=== PATIENT | female | born 1970 | race Caucasian/White ===

== ENCOUNTER 2016-12-18 12:22 | Emergency (ER) | payer BC ==
[~2016-12-18] VITALS: Ht 160 cm; Wt 73.8 kg
[~2016-12-18 12:22] MED LIST: MULT-506 PO; PRED20TA PO
[2016-12-18 12:24] VITALS: TEMP 36.8; Ht 160 cm; Wt 73.8 kg
[2016-12-18] MEDS ORDERED: CHOL1TAB46 PO (13:28)
[2016-12-18] MEDS ORDERED: GLAT1INJ INJ (13:28)
[2016-12-18] MEDS ORDERED: CEFTRIAXONE SOD INJ 1 GM ADDVIAL IV STA (13:32)
[2016-12-18] MEDS ORDERED: ONDANSETRON INJ 2 MG/ML 2 ML VIAL IV STA (13:32)
[2016-12-18] MEDS ORDERED: SODIUM CHLORIDE 0.9% 1000ML 1,000 ML IV STA (13:32)
[2016-12-18 13:33] LABS: MANUAL MICROSCOPIC REQUIRED? YES; REVIEW REQ? NO; URINE APPEARANCE SLIGHTLY CLOUDY (CLEAR); URINE COLOR ORANGE
[2016-12-18 13:34] LABS: SULFASALICYLIC ACID NEG (NEG)
[2016-12-18 13:36] LABS: URINE RBC 0-4 /hpf (0-4)
[2016-12-18 13:37] LABS: URINE BACTERIA 1+ (NEG); ZZUR CULT IF INDIC CLEAN CATCH YES
[2016-12-18 14:05] LABS: BASO % 0.1 %; BASO ABS # 0.01 K/uL (0-0.2); COMPLETE YES; EOS % 0.3 %; HEMATOCRIT 44.1 % (37-47); IG% 0.2 %; LYMPH % 5.3 %; LYMPH ABS # 0.48 K/uL (1.2-3.4); MEAN CELL VOLUME 90.4 fL (80-100); MEAN CORPUSCULAR HEMOGLOBIN 30.1 pg (25-34); MEAN CORPUSCULAR HGB CONC 33.3 g/dl (32-36); MEAN PLATELET VOLUME 9.8 fL (7.4-10.4); MONO % 5.6 %; NEUT % 88.5 %; PLATELET COUNT 251 K/uL (130-400); RED BLOOD COUNT 4.88 M/uL (4.2-5.4); WHITE BLOOD COUNT 8.99 K/uL (4.8-10.8)
[2016-12-18 14:28] LABS: BLOOD UREA NITROGEN 16 mg/dl (7-18); CALCIUM 9.2 mg/dl (8.5-10.1); CARBON DIOXIDE 24 mmol/L (21-32); CHLORIDE 104 mmol/L (98-107); CREATININE 0.82 mg/dl (0.60-1.20); GLUCOSE 100 mg/dl (70-99); SODIUM 139 mmol/L (136-145)
[2016-12-18] MEDS ORDERED: NITR-5 PO (15:04)
[2016-12-18] MEDS ORDERED: ONDA4TAB10 SL (15:05)
--- NOTE | 2016-12-18 15:08 | EMERGENCY ROOM VISIT NOTE ---
History Report prepared by Aureliano: Jodi Honeycutt Under the Supervision of: Dr. Isaac Cross D.O. First contact with patient: 13:28 Chief Complaint: URINARY SYMPTOMS Stated Complaint: UTI, VOMITING History of Present Illness The patient is a 46 year old female who presents to the Emergency Room with complaints of persistent urinary symptoms that began yesterday. She currently rates her discomfort as a 5/10 in severity. The patient states that she started noticing burning with urination and states that she took Azo this morning that helped with her urinary symptoms. She states that today she has become nauseous and additionally vomited. The patient states that she has had urinary frequency and notices a pressure with urination. She denies any fever, back pain, or flank pain. The patient notes a history of multiple sclerosis. Source of History: patient Onset: yesterday Position: other (global) Symptom Intensity: 5/10 Quality: other (urinary symptoms) Timing: other (persistent) Associated Symptoms: + nausea, + urinary symptoms (urinary frequency, pressure, burning with urination), + vomiting, No back pain, No fevers Review of Systems See HPI for pertinent positives & negatives. A total of 10 systems reviewed and were otherwise negative. Past Medical & Surgical Surgical Problems: (1) H/O: hysterectomy Family History Cancer Social History Smoking Status: Never Smoker Alcohol Use: none Drug Use: none Marital Status: Housing Status: lives with family Occupation Status: employed Current/Historical Medications Scheduled Cholecalciferol (Vitamin D3), 5,000 UNITS PO DAILY Glatiramer Acetate (Copaxone), 40 MG INJ 3XWK Nitrofurantoin Monohyd Macrocr (Macrobid), 100 MG PO BID Ondasetron Odt (Zofran Odt), 4 MG SL Q6H Allergies Coded Allergies: Hydrocodone (Verified Allergy, Mild, hives, 08/13/16) Physical Exam Vital Signs Date Time Temp Pulse Resp B/P Pulse Ox O2 Delivery O2 Flow Rate FiO2 12/18/16 13:57 105 18 124/56 93 Room Air 12/18/16 12:24 36.8 109 17 113/81 96 Room Air Physical Exam CONSTITUTIONAL/VITAL SIGNS: Reviewed / noted above. GENERAL: Non-toxic in appearance. INTEGUMENTARY: Warm, dry, and [place]. HEAD: Normocephalic. EYES: without scleral icterus or trauma. ENT/OROPHARYNX: clear and moist. LYMPHADENOPATHY/NECK: Is supple without lymphadenopathy or meningismus. RESPIRATORY: Lungs clear and equal. CARDIOVASCULAR: Regular rate and rhythm. GI/ABDOMEN: Soft and nontender. No organomegaly or pulsatile mass. No rebound or guarding. Normal bowel sounds. EXTREMITIES: Warm and well perfused. BACK: No CVA tenderness. NEUROLOGICAL: Intact without focal deficits. PSYCHIATRIC: normal affect. MUSCULOSKELETAL: Normally developed with good muscle tone. Medical Decision & Procedures Laboratory Results 12/18/16 13:57 Red Blood Count 4.88, Mean Corpuscular Volume 90.4, Mean Corpuscular Hemoglobin 30.1, Mean Corpuscular Hemoglobin Concent 33.3, Mean Platelet Volume 9.8, Neutrophils (%) (Auto) 88.5, Lymphocytes (%) (Auto) 5.3, Monocytes (%) (Auto) 5.6, Eosinophils (%) (Auto) 0.3, Basophils (%) (Auto) 0.1, Neutrophils # (Auto) 7.95, Lymphocytes # (Auto) 0.48, Monocytes # (Auto) 0.50, Eosinophils # (Auto) 0.03, Basophils # (Auto) 0.01 12/18/16 13:57 Test 12/18/16 12:39 12/18/16 13:57 Urine Color ORANGE Urine Appearance SLIGHTLY CLOUDY (CLEAR) Urine pH (4.5-7.5) Urine Specific [place] 1.020 (1.000-1.030) Urine Protein NEG (NEG) Urine Glucose (UA) (NEG) Urine Ketones (NEG) Urine Occult Blood (NEG) Urine Nitrite (NEG) Urine Bilirubin (NEG) Urine Urobilinogen (NEG) Urine Leukocyte Esterase (NEG) Urine RBC 0-4 /hpf (0-4) Urine WBC 5-10 /hpf (0-5) Urine Epithelial Cells >30 /lpf (0-5) Urine Calcium Oxalate Crystals PRESENT (NONE PRSENT) Urine Bacteria 1+ (NEG) White Blood Count 8.99 K/uL (4.8-10.8) Red Blood Count 4.88 M/uL (4.2-5.4) Hemoglobin 14.7 g/dL (12.0-16.0) Hematocrit 44.1 % (37-47) Mean Corpuscular Volume 90.4 fL (80-100) Mean Corpuscular Hemoglobin 30.1 pg (25-34) Mean Corpuscular Hemoglobin Concent 33.3 g/dl (32-36) Platelet Count 251 K/uL (130-400) Mean Platelet Volume 9.8 fL (7.4-10.4) Neutrophils (%) (Auto) 88.5 % Lymphocytes (%) (Auto) 5.3 % Monocytes (%) (Auto) 5.6 % Eosinophils (%) (Auto) 0.3 % Basophils (%) (Auto) 0.1 % Neutrophils # (Auto) 7.95 K/uL (1.4-6.5) Lymphocytes # (Auto) 0.48 K/uL (1.2-3.4) Monocytes # (Auto) 0.50 K/uL (0.11-0.59) Eosinophils # (Auto) 0.03 K/uL (0-0.5) Basophils # (Auto) 0.01 K/uL (0-0.2) RDW Standard Deviation 39.9 fL (36.4-46.3) RDW Coefficient of Variation 12.1 % (11.5-14.5) Immature Granulocyte % (Auto) 0.2 % Immature Granulocyte # (Auto) 0.02 K/uL (0.00-0.02) Anion Gap 11.0 mmol/L (3-11) Est Creatinine Clear Calc Drug Dose 84.2 ml/min Estimated GFR () 100.9 Estimated GFR (Non- 87.0 BUN/Creatinine Ratio 20.0 (10-20) Calcium Level 9.2 mg/dl (8.5-10.1) Laboratory results as stated above per my review. Medications Administered Medications (Trade) Dose Ordered Sig/Aden Route Start Time Stop Time Status Last Admin Dose Admin Sodium Chloride (Nss 1000ml) 1,000 ml @ 999 mls/hr Q1H1M STAT IV 12/18/16 13:32 12/18/16 14:32 DC 12/18/16 13:51 999 MLS/HR Ceftriaxone Sodium (Rocephin Inj) 1 gm NOW STAT IV 12/18/16 13:32 12/18/16 13:35 DC 12/18/16 13:51 1 GM Ondansetron HCl (Zofran Inj) 4 mg NOW STAT IV 12/18/16 13:32 12/18/16 13:35 DC 12/18/16 13:51 4 MG ED Course 1330: Previous medical records were reviewed. The patient was evaluated in room B2. A complete history and physical examination was performed. 1332: Ordered Zofran Inj 4 mg IV, Rocephin Inj 1 gm IV, Sodium Chloride 1000 ml @ 999 mls/hr IV. 1505: I reevaluated the patient and she is resting comfortably. I discussed the exam findings with her and I discussed the treatment plan. She verbalized complete understanding and agreement. She is ready to go home. Medical Decision Differential includes viral illness, influenza, streptococcal pharyngitis, meningitis, pneumonia, sinusitis, UTI, pyelonephritis, otitis media. This is a 46-year-old female who presents to the ED with a chief complaint of UTI symptoms. The patient reports burning, urgency and frequency that started last night. She took some Azo this morning around 8 AM and developed nausea and some vomiting. She denies having any fevers, flank pain or abdominal pain. Her vital signs are stable. Her physical exam did not reveal any CVA tenderness or tenderness to the abdomen. She is in no distress. Her CBC is normal, PRP is normal. Urine appears contaminated but that show bacteria and 5- 10 WBCs. Because the patient is symptomatically, the patient was treated with IV Rocephin and IV Zofran and IV fluids. She will be discharged on Macrobid and Zofran Impression Primary Impression: Urinary tract infection Scribe Attestation The scribe's documentation has been prepared under my direction and personally reviewed by me in its entirety. I confirm that the note above accurately reflects all work, treatment, procedures, and medical decision making performed by me. Departure Information Dispostion Home / Self-Care Prescriptions Ondasetron Odt (ZOFRAN ODT) 4 Mg Tab 4 MG SL Q6H for Nausea, #10 TAB Prov: Isaac Cross D.O. 12/18/16 Nitrofurantoin Monohyd Macrocr (Macrobid) 100 Mg Cap 100 MG PO BID, #14 CAP Prov: Isaac Cross D.O. 12/18/16 Referrals No Doctor, Assigned (PCP) Forms HOME CARE DOCUMENTATION FORM, IMPORTANT VISIT INFORMATION Patient Instructions ED UTI Cystitis Female, My [facility] Additional Instructions Zofran: Allow one tablet to dissolve under the tongue every 6 hours as needed for nausea or vomiting. Macrobid as prescribed for infection. Follow-up with your doctor for further care and evaluation in 1-2 days. Return to the emergency department for worsening or new symptoms or any concerns. You have been examined and treated today on an emergency basis only. This is not a substitute for, or an effort to provide, complete comprehensive medical care. It is impossible to recognize and treat all injuries or illnesses in a single emergency department visit. It is therefore important that you follow up closely with your doctor. Call as soon as possible for an appointment. Problem Qualifiers Primary Impression: Urinary tract infection Urinary tract infection type: acute cystitis Hematuria presence: without hematuria Qualified Codes: N30.00 - Acute cystitis without hematuria
[2016-12-18 15:19] VITALS: BP 91/58; PULSE 89; O2SAT 96
== END 2016-12-18 15:20 | disposition home or self-care (01) ==
LOC: C.EDB 12:23
DX: N30.00 Acute cystitis without hematuria (principal); Z79.899 Other long term (current) drug therapy

== ENCOUNTER → 2017-01-29 | Outpatient (CLI) | payer BC ==
[~2017-01-29] MED LIST changes: +CHOL1TAB46 PO; +GADAVIST IV PRN; +GLAT1INJ INJ; -MULT-506 PO; +NITR-5 PO; +ONDA4TAB10 SL; -PRED20TA PO
--- NOTE | 2017-01-29 10:45 | DIAGNOSTIC IMAGING REPORT ---
BRAIN COMBO FOR MS CLINICAL HISTORY: Multiple sclerosis. COMPARISON STUDY: MRI of the brain July 11, 2016. TECHNIQUE: Utilizing a 1.5 Tracy magnet, multiplanar, multi echo imaging of the brain was performed according to the multiple sclerosis protocol. Injection of 7.4 cc of Gadavist IV was uneventful FINDINGS: There are no areas of restricted diffusion. No acute intracranial hemorrhage, midline shift or mass effect is present. Ventricular system is normal. Basilar cisterns are patent. There are no extra-axial collections. Flow-voids for the major intracranial vessels are present. There are no intracranial masses or areas of abnormal parenchymal enhancement to suggest active demyelination. Numerous periventricular and subcortical white matter T2 hyperintense foci are similar to MRI of July 11, 2016. No new areas of demyelination are evident. Calvarial signal is maintained. IMPRESSION: 1. No acute intracranial findings. 2. No new plaques identified. No acute change in numerous white matter T2 hyperintense foci since exam of July 11, 2016 consistent with multiple sclerosis. No evidence of active demyelination. Electronically signed by: Remington Hartman M.D. 01/29/2017 10:43 AM Dictated Date/Time: 01/29/2017 10:39 AM
--- NOTE | 2017-01-29 10:49 | DIAGNOSTIC IMAGING REPORT ---
CERVICAL SPINE MRI HISTORY: G35 Multiple [id number] TECHNIQUE: Multiplanar multisequence MRI of the cervical spine was performed without the use of contrast. COMPARISON STUDY: Cervical spine MRI 08/04/2016. FINDINGS: Alignment and curvature is intact. No fracture or subluxation. Prevertebral soft tissues and the C1-C2 interval are maintained. Disc spaces are preserved. The thoracic spinal cord is normal in caliber. No significant change in the scattered T2 hyperintense foci within the cervical and thoracic spinal cord at the C3, C5, C6, T2, T3 levels. No new spinal cord lesions identified. C2-C3: No significant central canal or neural foraminal narrowing. C3-C4: No significant central canal or neural foraminal narrowing. C4-C5: No significant central canal or neural foraminal narrowing. C5-C6: No significant central canal or neural foraminal narrowing. C6-C7: No significant central canal or neural foraminal narrowing. C7-T1: No significant central canal or neural foraminal narrowing. IMPRESSION: No significant change in the multiple scattered foci of T2 hyperintensity seen within the cervical and upper thoracic spinal cord as described above. This is consistent with the patient's history of multiple sclerosis. No new spinal cord plaques identified Electronically signed by: Ovi Lu M.D. 01/29/2017 10:47 AM Dictated Date/Time: 01/29/2017 10:40 AM
== END | disposition home or self-care (01) ==
LOC: C.MRIBC 08:12
PROVIDERS: ATTEND Psychiatry & Neurology Neurology
DX: G35 Multiple sclerosis (principal)

== ENCOUNTER → 2018-02-12 | Outpatient (CLI) | payer BC ==
[~2018-02-12] MED LIST changes: -NITR-5 PO; -ONDA4TAB10 SL
--- NOTE | 2018-02-12 13:25 | DIAGNOSTIC IMAGING REPORT ---
Brain MRI WITH AND WITHOUT CONTRAST HISTORY: Multiple sclerosis. Follow-up. TECHNIQUE: Multiplanar multisequence MRI of the brain was performed both before and after the intravenous administration of contrast. COMPARISON STUDY: Brain MRI 07/11/2016. FINDINGS: No areas of restricted diffusion to suggest acute infarction. The midline structures are intact. The paranasal sinuses and mastoid air cells are clear. The orbits are unremarkable. The ventricles and sulci are within normal limits. There is no mass, hematoma, or midline shift. The major vascular flow-voids at the skull base are well-maintained. No significant change in the scattered white matter plaques seen predominantly within the periventricular white matter of the supratentorial brain. No definite infratentorial lesions at this time. No abnormal enhancement. IMPRESSION: 1. No significant change in the scattered white matter plaques consistent with the patient's history of multiple sclerosis. 2. No areas of abnormal enhancement to suggest active demyelination at this time. Electronically signed by: Ovi Lu M.D. 02/12/2018 1:24 PM Dictated Date/Time: 02/12/2018 1:19 PM
--- NOTE | 2018-02-12 13:33 | DIAGNOSTIC IMAGING REPORT ---
CERVICAL SPINE COMBO CLINICAL HISTORY: 47 years-old Female presenting with MULTIPLE SCLEROSIS, follow-up, asymptomatic. TECHNIQUE: Multisequence, multiplanar MR imaging of the cervical spine was performed before and after the administration of intravenous contrast. IV contrast: 7 mL of Gadavist. COMPARISON: 01/29/2017. FINDINGS: Localizer images: None available. Normal cervical lordosis. Vertebral bodies maintain normal height, alignment, and bone marrow signal intensity. Intervertebral discs preserved with the exception of minimal desiccation of C5-6. No other degenerative change. No neural foraminal or spinal canal narrowing. Cervical spinal cord normal in morphology though multifocal sites of abnormal signal intensity evident: Right lateral aspect at the level of C3 (series 16 images 6 and 7), dorsal right paramedian aspect at the level of C4-5 to C5-6 (series 16 images 10-16). Partially visualized thoracic spinal cord also demonstrates foci of abnormal signal intensity at the level of T2 and T3, not included within the [id number] on axial MERGE (series 16). The superior portion of the dorsal right paramedian lesion minimally enhances only at the most superior portion at the level of C4-5. Sagittal pre and postcontrast T1-weighted imaging is degraded by motion artifact. This overall limits evaluation of the spinal cord on postcontrast imaging. Paraspinal soft tissues within normal limits. No epidural collection. IMPRESSION: 1. Multiple foci of abnormal spinal cord signal intensity in the cervical and upper thoracic spine in a similar distribution as on prior exam. Suggestion of minimal enhancement at the superior most portion of the spinal cord lesion at the level of C4-5 could suggest a minor component of active demyelination. 2. No significant degenerative changes. Electronically signed by: Venu Alvarado M.D. 02/12/2018 1:32 PM Dictated Date/Time: 02/12/2018 1:22 PM
== END | disposition home or self-care (01) ==
LOC: C.MRIBC 11:51
PROVIDERS: ATTEND Psychiatry & Neurology Neurology
DX: G35 Multiple sclerosis (principal)

== ENCOUNTER → 2018-03-12 | Outpatient (CLI) | payer BC ==
[~2018-03-12] MED LIST changes: -GADAVIST IV PRN
--- NOTE | 2018-03-15 15:10 | MAMMOGRAPHY REPORT ---
BILATERAL DIGITAL SCREENING MAMMOGRAM TOMOSYNTHESIS WITH CAD: 03/12/2018 CLINICAL HISTORY: Routine screening. Patient has no complaints. TECHNIQUE: Breast tomosynthesis in addition to standard 2D mammography was performed. Current study was also evaluated with a Computer Aided Detection (CAD) system. COMPARISON: Comparison is made to exams dated: 05/01/2015 ultrasound, 05/01/2015 mammogram, and 5 mammogram - [facility]. BREAST COMPOSITION: The tissue of both breasts is heterogeneously dense, which may obscure small mas ses. FINDINGS: No suspicious masses, calcifications, or areas of architectural distortion are noted in ei ther breast. There has been no significant interval change compared to prior exams. IMPRESSION: ACR BI-RADS CATEGORY 1: NEGATIVE There is no mammographic evidence of malignancy. A 1 year screening mammogram is recommended. The pa tient will receive written notification of the results. Approximately 10% of breast cancers are not detected with mammography. A negative mammographic report should not delay biopsy if a clinically suggestive mass is present. Poornima Boswell M.D. ah/:03/12/2018 15:38:23 Sales Development Representative: Polly ANDRE(Mindy)(M), [facility] letter sent: Normal 1/2 BI-RADS Code: ACR BI-RADS Category 1: Negative
== END | disposition home or self-care (01) ==
LOC: C.MAMM 15:03
PROVIDERS: ATTEND Family Medicine
DX: Z12.31 Encounter for screening mammogram for malignant neoplasm of breast (principal)